=== PATIENT | male | born 1960 | race Two or more races ===

== ENCOUNTER 2025-11-11 14:29 | Outpatient (RCR) | payer MEDICARE, MEDICAID, SELFPAY ==
--- NOTE | 2025-10-22 11:32 | CTCCONSULT_ITS ---
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 ERCP performed showed a grossly deformed duodenum. was unable to cannulate CBD. EUS showed an ampullary mass, no biopsies taken at the time. Now transferred to [facility] for higher level of care. Patient states that he has had about 3 months of epigastric pain. worse with meals. His daughter noticed yellowing of his eyes for the last 2-3 weeks. He has had normal PO intake, denies decreased appetite. Has dark colored urine. pale stools, generalized itchiness. Denies fevers, weightless, nausea, vomiting, diarrhea. He denies any personal or family history of pancreatitis, GI cancers. He smokes about 10 cigarettes per day for last 45 years or so. Omsional alcohol use, denies illicit drug use. Denies past surgiwl history. Has never had a colonoscopy. 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 Tobacco Use:?Smokes -10 cigarettes/day -4 yrs - Smoked 1 PPD x35yrs ETOH?Use:?Drank?2-24oz?beers?x?20?yrs Drug?Note:?Denies Social History Note:?Lives with dtr and son-in-law MEDICATIONS: 1. None?[place]ra Meds? Medications Last Reconciled by Karo Ha RN on 10/22/2025 ALLERGIES: Penicillins REVIEW OF SYSTEMS: A complete 14-point review of systems was performed and is negative except as noted in interval history. PHYSICAL EXAMINATION: VITAL SIGNS: B/P?148/74, Height?65?inches, Oxygen?Saturation?95% Weight?176?lbs PAIN: 4 - Moderate pain ECOG Performance Status: 0 - Asymptomatic and fully active GENERAL APPEARANCE: Appears well, in no apparent distress, appropriately interactive. HEENT: Normocephalic, no temporal wasting, normal conjunctiva, no scleral icterus, normal hearing, lips without lesions, neck normal range of motion. CARDIOVASCULAR: Not assessed. PULMONARY: Normal respiratory effort, no respiratory distress or use of accessory muscles, speaking in full sentences, no tachypnea. EXTREMITIES: No pedal edema or cyanosis. SKIN: Normal skin appearance. NEUROLOGIC: Alert and oriented x4. PSHYCHIATRIC: Appropriate affect, mood normal, behavior normal, intact thought and speech. LABORATORY DATA: I have personally reviewed and interpreted each of the patient?s relevant lab tests, abnormal findings are below: Date ASSESSMENT/PLAN: Invasive adenocarcinoma of intestinal region Primary not known at this time Biopsy of the ampulla of Vater showed tumor which is invasive adenocarcinoma Patient need EGD and colonoscopy CT chest abdomen pelvis with IV contrast to fully stage patient Patient will need chemotherapy so will refer to interventional radiology to do port placement Will start on FOLFOX while awaiting for further imaging and being seen by a surgeon RETURN TO CLINIC: I reviewed the diagnosis, prognosis, and recommended treatment/procedure options with the patient (and/or their legal sales representative womens health), including the potential benefits, risks, side effects and alternative therapies. We also discussed the option of no treatment and the possibility of clinical trial participation, if applicable. All questions were addressed, and they demonstrated understanding. They provided informed consent to proceed with the proposed plan of care. BILLING AND COMPLIANCE: I reviewed external records from providers outside my specialty as summarized above. I spent a total of 50 minutes on this patient?s care on the day of their visit excluding time spent related to any billed procedures. This time includes time spent with the patient as well as time spent documenting in the medical record, reviewing patients records and tests, obtaining history, placing orders, communicating with other healthcare professionals, counseling the patient, family or caregiver, and/or care coordination for the diagnoses above. Electronically Signed by: Ney Ferguson MD T: 11:30 AM CC: PCP: Referring: Matt Carias This document was completed utilizing speech recognition software. Grammatical errors, random word insertions, pronoun errors, and incomplete sentences are an occasional consequence of this system due to software limitations, ambient noise, and hardware issues. Any formal questions or concerns about the content, text or information contained within the body of this dictation should be directly addressed to the provider for clarification.
== END 2025-11-19 23:59 | disposition home or self-care (01) ==
LOC: SCTC 14:29
PROVIDERS: PCP Family Medicine; Referring Provider Family Medicine; Visit Provider Radiology Therapeutic Radiology
DX: C17.0 Malignant neoplasm of duodenum (principal); C24.1 Malignant neoplasm of ampulla of Vater
CPT/HCPCS: 99213; G0463

== ENCOUNTER 2025-11-15 22:41 | Emergency (ER) | payer MEDICARE, MEDICAID, SELFPAY ==
[2025-11-15] VITALS (10 sets, daily range): BP systolic 91–109; BP diastolic 49–74; PULSE 88–136; RESP 13–24; TEMP 36.9–37.9; O2SAT 80–100; BMI 28.8
--- NOTE | 2025-11-15 22:46 | EDNOTE_ITS ---
ED GI Bleed RME/HPI General Chief complaint: Syncope / Near Syncope Stated complaint: SHOCK Time Seen by Provider: 11/15/25 22:45 Arrival date/time: 11/15/25 22:41 RME / HPI RME / HPI Narrative: DR. 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 Patient was found to be notably hypotensive with systolic BP in the 70's range and notably hypoxic with O2 saturation in the 80th percentile on usual 2L/min via NC. IV established in field and placed in high-flow nonrebreather mask with increase in oxygenation in high 90th percentile range. Patient does note melena of 2-3 days duration and epigastric pain, although denies hematemesis. PMH: Duodenal Mass, Metastatic Adenocarcinoma of the intestine PSH: Bilary stent placement s/p obstruction Allergies: Penicillins Social: Positive for Tobacco, No alcohol or illicit drug abuse Related Data Allergies Allergy/AdvReac Type Severity Reaction Status Date / Time Penicillins Allergy Verified 11/15/25 22:41 Review of Systems Review of Systems Systems Reviewed: All systems reviewed, normal except as documented Past Medical History Past Medical History CARDIAC: Positive Hypotension RESPIRATORY: Positive Chronic Obstructive Pulmonary Disease (COPD) and Asthma (COPD) GASTROINTESTINAL: Positive Gastrointestinal Bleed Social History SMOKING STATUS: Current some day smoker ED Exam Narrative Physical exam: GEN. APPEARANCE: The patient is alert awake oriented X-3 notably tachycardic, hypotensive, appears pale. Patient has good eye contact. Patient is cooperative. VITALS: All vitals were reviewed and the pulse ox is 100%, which is normal according to my interpretation HEENT: Normocephalic, atraumatic and nontender. Pupils are equal and reactive. Oral mucosa is moist. NECK: Supple, nontender, no meningismus, no JVD. There is no thyromegaly and no lymphadenopathy. CHEST: Nontender on palpation no deformity and no crepitus. CARDIOVASCULAR: Tachycardic, no murmur or gallop rub or extra beats. LUNGS: Clear to auscultation bilaterally with symmetrical chest rise. No laboring tachypnea or wheezing. No intercostal subcostal retraction. No rales and no rhonchi. ABDOMEN: Soft, mildly distended, diffusely tender with grimacing with palpation to upper quadrant/epigastric region, guarding, hemoccult positive stool. There are no abnormal masses palpated. No pulsatile masses or bruits. Active and normal bowel sounds. EXTREMITIES: Normal inspection and palpation. No edema. No cyanosis. Patient is able to move all 4 extremities well SKIN: Warm and dry, no rashes noted. MUSCULOSKELETAL: No lumbar or midline bony tenderness. There is no CVA tenderness. No paraspinal muscle spasm or tenderness. NEURO: Cranial nerves II through XII grossly intact. There are no focal neurologic deficits noted. GCS is 15 PSYCHIATRIC: Patient is in normal mood and affect, cooperative. LYMPHATICS: No major lymphadenopathy noted. Course Course Course Narrative: 0600: Care assumed by Dr. Dacosta (emergency physician). Past medical, surgical, social and family history reviewed. Vitals and home medications reviewed. Results and treatment plan discussed. They will assume the care of the patient at this time and will follow the patient, pending CXR, blood transfusion and possible transfer to tertiary facility. Quality Measures Current suspected stage: sepsis Possible source: GI tract/intra-abdominal Blood cultures ordered: yes Antibiotic ordered: Yes Pertinent labs: 11/15/25 11/16/25 22:45 02:50 Lactic Acid 4.9 H* mMol/L 0.7 mMol/L (0.4-2.0) (0.4-2.0) Procalcitonin 0.18 ng/ml (0.0-0.49) sepsis Orders Category Date Time Status CT Screening NOW Care 11/15/25 23:08 Active Rubbish Collection Supervisor NOW Care 11/16/25 00:01 Completed Rubbish Collection Supervisor STAT Care 11/15/25 22:56 Active Rubbish Collection Supervisor STAT Care 11/15/25 23:07 Completed Continuous Pulse Oximetry Care 11/16/25 00:01 Active Continuous Pulse Oximetry STAT Care 11/15/25 22:57 Completed EKG (ED ONLY) *Do not use* NOW Care 11/15/25 22:47 Completed Bone [Urinary Catheter] QS Care 11/15/25 22:50 Active Insert IV STAT Care 11/15/25 22:57 Completed NPO STAT Care 11/15/25 22:57 Active Obtain Written Consent For: NOW Care 11/16/25 00:01 Completed Transfuse,blood/blood products NOW Care 11/15/25 23:59 Active Urinary Catheter STAT Care 11/15/25 22:[address] abd pel w con SEPSIS MORAIMA Stat Exams 11/15/25 23:06 Completed EKG (ED Only) Stat Exams 11/15/25 22:47 Draft XR chest 1V portable Stat Exams 11/16/25 05:55 Completed Ammonia Stat Lab 11/15/25 23:54 Completed Amylase Stat Lab 11/15/25 22:45 Completed Antibody Identification Stat Lab 11/15/25 22:45 Completed Blood Culture (Lab) Stat Lab 11/15/25 22:40 Received CBC Stat Lab 11/15/25 22:45 Completed Comprehensive Metabolic Panel Stat Lab 11/15/25 22:45 Completed Lactate (Lactic Acid) Stat Lab 11/15/25 22:45 Completed Lactic Acid, 3 HR Stat Lab 11/16/25 02:50 Completed Lipase Stat Lab 11/15/25 22:45 Completed Magnesium Stat Lab 11/15/25 22:45 Completed Packed Cells [Red Blood Cells] Stat Lab 11/16/25 00:00 Completed Partial Thromboplastin Time Stat Lab 11/15/25 22:45 Completed Procalcitonin Stat Lab 11/15/25 22:45 Completed Prothrombin Time with INR Stat Lab 11/15/25 22:45 Completed Troponin I Stat Lab 11/15/25 22:45 Completed Type and Screen Stat Lab 11/15/25 22:45 Completed Urinalysis, C/S if Indicated Stat Lab 11/15/25 23:00 Completed Urinalysis, C/S if Indicated Stat Lab 11/15/25 23:07 Ordered Albuterol/Ipratr Rt Shiloh [Duoneb Rt Shiloh] Med 11/16/25 07:49 Discontinued 3 ml INH X1 ONE Pantoprazole Inj [Protonix Inj] Med 11/15/25 22:56 Discontinued 40 mg IVP X1 ONE Ringers Lactated 1000 ml [Lactated Ringers] 1,000 ml Med 11/15/25 23:06 Discontinued IV 999 mls/hr Sodium Chloride 0.9% 1000 ml [Ns] 1,000 ml Med 11/16/25 06:15 Active IV 250 mls/hr Sodium Chloride 0.9% 1000 ml [Ns] 1,000 ml Med 11/15/25 22:56 Discontinued IV 999 mls/hr fentaNYL INJ [Sublimaze Inj] Med 11/15/25 23:26 Discontinued 50 mcg IVP X1 ONE Oxygen Delivery NOW RT 11/15/25 23:07 Completed Oxygen Delivery STAT RT 11/15/25 22:57 Active Vital Signs Vital signs: Vital Signs Pulse Rate 132 H 11/15/25 22:45 Respiratory Rate 19 11/15/25 22:45 Pulse Oximetry (%) 100 11/15/25 22:45 PROCEDURES: Stool Hemoccult Procedural Steps Taken: stool placed in appropriate test area, developer placed on stool and control areas and controls appropriately positive and negative Hemoccult result: positive GI Bleed MDM Narrative MDM Narrative:: Scribe Attestation: Tish Merlos, am scribing for and in the presence of Dr. Kramer. Provider Notation: Although this document has been carefully reviewed, there may still be some phonetic and other typographical errors. These errors are purely grammatical due to imperfections in the software program and should not be construed in any way to compromise the substance of the patient's medical care during this visit. 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 Patient was found to be notably hypotensive with systolic BP in the 70's range and notably hypoxic with O2 saturation in the 80th percentile on usual 2L/min via NC. Please see PE findings. Laboratory markers, including CBC and serum chemistries, demonstrated a WBC of 10.4 and Hgb of 6.6 (significant drop from previous), thrombocytosis. Serum chemistries notable for lactic acid of 4.9, elevated LFT's, and normal ammonia. UA without evidence of infection. Patient ruled in for sepsis protocol, after cultures obtained, initiated dual ABX. BP improved gradually to 100 systolic range. CXR currently pending. Patient typed and cross packed RBC and will be transfused. CT abdomen/pelvis demonstrates biliary obstruction with noted biliary stent in place and large duodenal mass, likely metastatic extending to liver and pancreas. Additionally noted is evidence of cholecystitis. Final diagnoses include Emphysematous cholecystitis, Ascending cholangitis, and Septic shock. Patient will require transfer to tertiary center. Please see AM physician's note for final disposition. Patient data External records reviewed:: [facility] previous records (Reviewed prior ED records from 10/29/25. Patient was seen for Duodenal mass.) and EMS form Clinical information provided by:: patient and EMS Social determinants that could affect healthcare access:: none Patient has the following chronic illnesses:: Duodenal Mass, Metastatic Adenocarcinoma of the intestine, Hypotension, COPD, GI bleed, Asthma How is presenting disease/condition affected by chronic disease/condition?: exacerbated by Evaluation data The following diagnostics were reviewed and interpreted by me:: lab results, radiology exam(s) and EKG tracing(s) (EKG at 22:47 shows normal sinus tachycardia at 129, normal axis, no ectopy, no signs of acute ischemia, per my interpretation.) Lab and/or radiology exams considered but not ordered:: None Interpretation Summary: RADIOLOGY Abdomen/Pelvis CT: Findings: The lung bases are clear. The spleen, and adrenals are unremarkable. A few subcentimeter hypodensities in the liver, too small to be characterized. Complex left renal cystic lesion measuring 8.4 cm. No hydronephrosis. Fat stranding peripheral to the pancreatic tail. Ill-defined hypodensity of the pancreatic head associated with pancreatic duct dilation. Biliary stent in place associated with expected pneumobilia. Moderate intrahepatic biliary duct dilation. Gallbladder wall thickening. Gallstones. Air within the gallbladder. Distended stomach with air-fluid levels within. No evidence of bowel obstruction. The appendix is within normal limits. There is no mesenteric or retroperitoneal adenopathy. Bone catheter in place. The urinary bladder is not distended, limited evaluation. Air within the urinary bladder. There is no free fluid or free air. The osseous structures are unremarkable. Diverticulosis of the colon. Impression: 1. Acute cholecystitis. 2. Possible cholangitis. 3. Liver hypodensities, differential diagnosis includes focal cholangitis and metastases. Further evaluation is recommended. 4. Distended stomach with air-fluid levels within, consider gastric dysmotility disorder and gastric outlet obstruction. 5. Complex left renal cystic lesion, further evaluation for characterization is recommended, consider cystic renal cell carcinoma in the differential diagnosis. 6. Acute pancreatitis at the level of the pancreatic tail. 7. Hypodense area in the pancreatic head suspicious for pancreatic cancer. 8. Urinary bladder air, possibly postprocedural or possibly due to acute cystitis. Medications / Prescriptions Medications or Prescriptions considered but not ordered:: None Medication administrations:: Medication Administration History Sodium Chloride (Ns) 1,000 mls @ 250 mls/hr IV .Q4H SONIA Stop: 12/16/25 06:14 Last Admin: 11/16/25 11:47 Dose: 250 mls/hr Documented By: Infusion: 11/16/25 10:21 Dose: Infused Documented By: Admin: 11/16/25 06:21 Dose: 250 mls/hr Documented By: LOREE Discontinued Medications Albuterol/Ipratropium (Albuterol/Ipratropium (Duoneb) Rt Shiloh 3 Ml Nebu) 3 ml INH X1 ONE Stop: 11/16/25 07:50 Last Admin: 11/16/25 08:09 Dose: 3 ml Documented By: TRACY Fentanyl Citrate (Fentanyl Cit Inj 50 Mcg/Ml Amp 2ml) 50 mcg IVP X1 ONE Stop: 11/15/25 23:27 Last Admin: 11/15/25 23:33 Dose: 50 mcg Documented By: LOREE Sodium Chloride (Ns) 1,000 mls @ 999 mls/hr IV .Q1H1M ONE Stop: 11/15/25 23:56 Last Infusion: 11/16/25 00:19 Dose: Infused Documented By: Admin: 11/15/25 23:04 Dose: 999 mls/hr Documented By: LOREE Lactated Ringer's (Lactated Ringers) 1,000 mls @ 999 mls/hr IV .Q1H1M ONE Stop: 11/16/25 00:06 Last Infusion: 11/16/25 00:19 Dose: Infused Documented By: Admin: 11/15/25 23:17 Dose: 999 mls/hr Documented By: LOREE Pantoprazole Sodium (Pantoprazole Inj 40 Mg Vial) 40 mg IVP X1 ONE Stop: 11/15/25 22:57 Last Admin: 11/15/25 23:05 Dose: 40 mg Documented By: LOREE See above if any. Consultations Consultation(s) initiated? (list below): No Diagnosis GI bleed differential diagnosis: Lower gastrointestinal hemorrhage, hematochezia, melena and anal fissure Most likely diagnosis given after review of the tests above:: Emphysematous cholecystitis, Ascending cholangitis, Septic shock Admission Indicated Admission indicated?: indicated Explain why admission is indicated or not indicated:: pending blood transfusion and transfer to tertiary facility. Admission Request Was there a request for admission?: No Disposition Plan Disposition Plan: other (specify) (Signed out to Dr. Dacosta at 6 AM.) Critical Care Time Critical Care Time Critical Care Time: Yes Total Critical Care Time (min.): 45 Attestation: The high probability of sudden, clinically significant deterioration in the patient?s condition required the highest level of my preparedness to intervene urgently. The services I provided to this patient were to treat and/or prevent clinically significant deterioration. Services included the following: chart data review, reviewing nursing notes and/or old charts, documentation time, media consultant outside sales collaboration regarding findings and treatment options, medication orders and management, direct patient care, vital sign assessments and ordering, interpreting and reviewing diagnostic studies and lab tests. Aggregate critical care time includes only time during which I was engaged in work directly related to the patient?s care, as described above, whether at bedside or elsewhere in the Emergency Department. It did not include time spent performing other reported procedures or the services of residents, students, nurses or physician assistants. Discharge Plan Plan Patient Disposition: [facility] Pt Being Transferred to: [facility] Service Needed for Transfer: Gastroenterology Prescriptions/Referrals Referrals: Matt Carias MD [Primary Care Provider] - In 1 week Problem List Clinical Impression: Emphysematous cholecystitis, Ascending cholangitis, Septic shock Patient/Caregiver Discharge Instructions Print Language: Cymro Stand Alone Forms: [facility] Award Info., Patient Portal Info Letter
--- NOTE | 2025-11-15 22:47 | EKG_ITS ---
[facility] Test Date: 2025-11-15 Pat Name: SUPA JIN Department: Room: - Gender: Male [employer]ing [employer] Operator: : 1960 Requested By: Sid Moraes Order Number: [id number] Reading MD: Sid Moraes Measurements Intervals [place] Rate: 129 P: 83 MO: 152 QRS: 64 QRSD: 87 T: 81 QT: 310 QTc: 455 Interpretive Statements SINUS TACHYCARDIA POSSIBLE RIGHT VENTRICULAR CONDUCTION DELAY [RSR (QR) IN V1/V2] ABNORMAL RHYTHM ECG Compared to ECG 10/28/2025 05:53:57 ST (T wave) deviation no longer present /store/S0/[id number]/ecg/[id number].pdf
[2025-11-15] MEDS: SODIUM CHLORIDE 0.9% 1000 ML 1,000 ML 999 ML IV (23:04)
--- NOTE | 2025-11-15 23:06 | XR_ITS ---
: Examination: CT abdomen with intravenous contrast CT pelvis with intravenous contrast 2-D coronal reconstructions 2-D sagittal reconstructions Date and time of exam: November 16, 2025, 0046 hours INDICATIONS: Sepsis alert, abdominal pain, onset unknown source of infection today. CTDI: vol (mGy) 29 DLP: (mGycm) 1219 Technique: Multiple axial sections of the abdomen and pelvis have been obtained. 64 slice high-resolution scanner used. 3 mm axial sections have been obtained, post intravenous injection 60 cc [id number] 2D sagittal coronal reconstructions Low dose protocols, adjustment of the MA KV according to patient size FINDINGS: Pneumobilia with biliary tract dilatation intra and extrahepatic Fluid distended stomach Subtle indeterminate low-density liver lesions Gallstones, suspicious for cholecystitis Biliary stent with thickening of the common bile duct Pancreatic head is enlarged, axial image 74, 4 cm mild edema 1 mm right renal calculus Complex left cystic mass 8 cm with calcification in the wall of the cyst Normal appendix No bowel obstruction Colonic diverticulosis Air in the urinary bladder Diffuse mild to moderate lumbar degenerative disc disease IMPRESSION: Pneumobilia, subtle low-density liver lesions, consider MRI abdomen liver follow-up pre and postcontrast Cholelithiasis, suspicious for cholecystitis Biliary stent with wall thickening involving the common bile duct, consider cholangitis Enlarged pancreatic head with possible edema pancreatic head, differential would include pancreatic carcinoma Complex left renal cystic mass, recommend renal sonography 1 mm right renal calculus No bowel obstruction Cystitis pattern
[2025-11-15] MEDS: RINGERS LACTATED 1000 ML 1,000 ML 999 ML IV (23:17)
[2025-11-15 23:27] LABS: Collection Type, Urine Catheter
[2025-11-15] MEDS: fentaNYL CIT INJ 50 mCg/ML AMP 2ML IVP (23:33)
[2025-11-15 23:35] LABS: Bilirubin,Urine Negative (Negative); Blood,Urine Negative (Negative); Clarity,Urine Clear (Clear/Hazy); Color,Urine Yellow (Lt Yel-Yel); Culture Indicated,Urine Not Indicated; Glucose, Urine Negative (Negative); Ketones,Urine Trace (Negative); Leukocyte Esterase,Urine Negative (Negative); Nitrite,Urine Negative (Negative); PH,Urine 7.0 (5.0-7.0); Protein,Urine 1+ (Neg - Trace); RBC,Urine 8 /hpf (0-3); Specific Gravity,Urine 1.029 (1.001-1.035); Squamous Epithelial Cell,Urine < 1 /hpf (0-5); Urobilinogen,Urine 3.0 mg/dL (0.0-1.0); WBC,Urine 1 /hpf (0-5)
[2025-11-15 23:45] LABS: Lactate (Lactic Acid) 4.9 mMol/L (0.4-2.0)
[2025-11-15 23:50] LABS: Basophils # (Auto) 0.0 Thou/mm3 (0.0-0.2); Basophils % (Auto) 0 % (0-2.5); Eosinophils # (Auto) 0.1 Thou/mm3 (0.0-0.5); Eosinophils % (Auto) 1 % (0-10); Hematocrit 21.3 % (41.0-53.0); Immature Granulocytes Auto 0.06 Thou/mm3 (0.00-0.00); Lymphocytes # (Auto) 2.1 Thou/mm3 (1.0-4.8); Lymphocytes % (Auto) 20 % (10-50); Mean Corpuscular HGB Conc 31.0 g/dl (31.0-37.0); Mean Corpuscular Hemoglobin 27.3 pg (25.0-35.0); Mean Corpuscular Volume 88 fL (80-100); Monocytes # (Auto) 0.8 Thou/mm3 (0.0-0.8); Monocytes % (Auto) 7 % (0-12); Neutrophils # (Auto) 7.3 Thou/mm3 (1.8-7.7); Neutrophils % (Auto) 71 % (37-80); Nucleated Red Blood Cell # 0.02 Thou/mm3 (0.00-0.00); Nucleated Red Blood Cell % 0 /100 WBC (0); Platelet Count 533 Thou/mm3 (140-440); RDW Standard Deviation 50.4 fL (35.1-43.9); Red Blood Count 2.42 Miln/mm3 (4.50-5.90); White Blood Count 10.4 Thou/mm3 (3.8-10.6)
[2025-11-15 23:52] LABS: Hemoglobin 6.6 g/dL (13.5-16.0)
[2025-11-15 23:55] LABS: INR 1.0 (0.9-1.3); Partial Thromboplastin Time 23.9 Seconds (22.0-36.0); Prothrombin Time 11.0 Seconds (9.0-12.2)
[2025-11-16] VITALS (43 sets, daily range): BP systolic 96–128; BP diastolic 50–62; PULSE 63–94; RESP 16–32; TEMP 36.4–37.2; O2SAT 92–100
[2025-11-16 00:31] LABS: Ammonia 15 uMol/L (11-32)
[2025-11-16 01:27] LABS: Alanine Aminotransferase 297 U/L (10-49); Albumin, Serum 2.9 gm/dL (3.4-4.8); Albumin/Globulin Ratio 1.5 (1.2-2.2); Alkaline Phosphatase 990 U/L (46-116); Amylase 30 U/L (30-118); Anion Gap 8 (7-16); Aspartate Amino Transferase 122 U/L (0-34); BUN/Creatinine Ratio 22 Ratio (12-20); Bilirubin,Total 0.7 mg/dL (0.3-1.2); Blood Urea Nitrogen 13 mg/dL (9-23); Calcium 8.1 mg/dL (8.3-10.6); Calcium (Corrected) 9.0 mg/dL (8.5-10.1); Carbon Dioxide 32.8 mMol/L (20.0-31.0); Chloride 102 mMol/L (98-107); Creatinine (Component) 0.6 mg/dL (0.6-1.3); Estimated Creatinine Clearance 124.5 mL/min (>60); Globulin 2.0 gm/dL (2.3-3.5); Glucose 130 mg/dL (74-106); Lipase 37 U/L (12-53); Magnesium 1.8 mg/dL (1.6-2.6); Osmolality,Calculated 287 (275-295); Potassium 3.5 mMol/L (3.4-5.1); Procalcitonin 0.18 ng/ml (0.0-0.49); Sodium 143 mMol/L (136-145); Total Protein 4.9 gm/dL (5.7-8.2); Troponin I < 0.020 ng/mL (0.0-0.045); eGFR > 60 See Note
--- NOTE | 2025-11-16 02:00 | PC.NURSE ---
per blood bank, blood is getting sent from [facility]. they will call this rn back when they have an eta
[2025-11-16 02:41] LABS: Reflex Lactate? Y
[2025-11-16 02:54] LABS: Lactic Acid, 3 HR 0.7 mMol/L (0.4-2.0)
--- NOTE | 2025-11-16 02:55 | PRELIM_ITS ---
CT scan of the abdomen and pelvis with intravenous contrast (axial sections with sagittal and coronal reformats) November 16, 2025 0046 hours Clinical History: Rule out intraabdominal abscess. Comparison: None available at the time of this report. Findings: The lung bases are clear. The spleen, and adrenals are unremarkable. A few subcentimeter hypodensities in the liver, too small to be characterized. Complex left renal cystic lesion measuring 8.4 cm. No hydronephrosis. Fat stranding peripheral to the pancreatic tail. Ill-defined hypodensity of the pancreatic head associated with pancreatic duct dilation. Biliary stent in place associated with expected pneumobilia. Moderate intrahepatic biliary duct dilation. Gallbladder wall thickening. Gallstones. Air within the gallbladder. Distended stomach with air-fluid levels within. No evidence of bowel obstruction. The appendix is within normal limits. There is no mesenteric or retroperitoneal adenopathy. Bone catheter in place. The urinary bladder is not distended, limited evaluation. Air within the urinary bladder. There is no free fluid or free air. The osseous structures are unremarkable. Diverticulosis of the colon. Impression: 1. Acute cholecystitis. 2. Possible cholangitis. 3. Liver hypodensities, differential diagnosis includes focal cholangitis and metastases. Further evaluation is recommended. 4. Distended stomach with air-fluid levels within, consider gastric dysmotility disorder and gastric outlet obstruction. 5. Complex left renal cystic lesion, further evaluation for characterization is recommended, consider cystic renal cell carcinoma in the differential diagnosis. 6. Acute pancreatitis at the level of the pancreatic tail. 7. Hypodense area in the pancreatic head suspicious for pancreatic cancer. 8. Urinary bladder air, possibly postprocedural or possibly due to acute cystitis. Report Electronically Signed By: Víctor Fonseca 11/16/2025 2:54:55 AM [EST]
--- NOTE | 2025-11-16 05:55 | XR_ITS ---
EXAMINATION: AP chest single view TECHNIQUE: AP portable upright chest single view Date and time: November 16, 2025, 0604 hours, comparison October 28, 2025 INDICATIONS: Shortness of breath today. FINDINGS: Mild prominence left ventricle Mild vascular congestion. No lobar pneumonia or pulmonary edema. Moderate osteopenia IMPRESSION: Moderate vascular congestion
[2025-11-16] MEDS: SODIUM CHLORIDE 0.9% 1000 ML 1,000 ML 250 ML IV ×2 (06:21→11:47)
[2025-11-16] MEDS: ALBUTEROL/IPRATROPIUM (Duoneb) RT SOL 3 ML NEBU INH (08:09)
--- NOTE | 2025-11-16 08:17 | PC.NURSE ---
THIS [employer]ARM FACILITY MANAGER CONTACTED AND SPOKE WITH BAYRON AT [facility]SF[facility] TO INITIATE TRANSFER FOR THIS PATIENT @ [phone].
--- NOTE | 2025-11-16 09:56 | PC.NURSE ---
0900 RN SPOKE WITH MARIUSZ AT [facility] [phone], EXPRESSING NEED FOR INSURANCE AUTH FOR PATIENT, RN ATTEMPTED TO CALL PATIENT INSURANCE MEDICARE MANAGED CARE ([facility]) [employer] @ [phone], CLINICAL SERVICES CLOSED TODAY, OPEN MON-MONDAY 8- ONLY.
--- NOTE | 2025-11-16 10:00 | PC.NURSE ---
MARIUSZ FROM [facility] RETURN CALL TO INFORM NO AUTH WAS REQUIRED FOR PATIENT AT THIS TIME.
--- NOTE | 2025-11-16 10:44 | PD.EDADDENDU ---
Emergency Room Addendum Addendum Narrative: 0600: Care assumed from Dr. Lozoya, the previous shift emergency physician. Past medical, surgical, social and family history reviewed. Vitals and home medications reviewed. I will assume the care of the patient at this time. Please refer to the emergency department record for history and examination from initial visit.? Patient with known metastatic duodenal malignancy presenting with near syncope, hypotension, hypoxia, melena, and acute anemia. Labs notable for hemoglobin 6.6, lactic acid 4.9, thrombocytosis, and elevated LFTs. CT abdomen pelvis shows large duodenal mass with biliary obstruction, emphysematous cholecystitis, and ascending cholangitis. Sepsis protocol initiated, blood cultures obtained, broad spectrum antibiotics started, and packed RBC transfusion ordered. Blood pressure improved without pressor requirement. 9:40 AM I called [facility] transfer center at [phone]. I spoke with the transfer center personnel. They said that they have paged out the hospitalist but they have not called back. That page amongst the happened hours ago. I asked in the review page and I also gave them an update on the diagnoses of the patient. Hopefully will get a callback soon. Currently the patient's heart rate is 88, blood pressure 120/61. His temp is 98.4. He saturating 100% on 2 L. So far he has not required pressors. Differential diagnoses include septic shock, GI bleed secondary to malignant duodenal mass, and biliary sepsis. 1046: [facility] accepted the patient for transfer. Critical Care Time Critical Care Time Critical Care Time: Yes Total Critical Care Time (min.): 45 Attestation: The high probability of sudden, clinically significant deterioration in the patient?s condition required the highest level of my preparedness to intervene urgently. The services I provided to this patient were to treat and/or prevent clinically significant deterioration. Services included the following: chart data review, reviewing nursing notes and/or old charts, documentation time, informatics consultant collaboration regarding findings and treatment options, medication orders and management, direct patient care, vital sign assessments and ordering, interpreting and reviewing diagnostic studies and lab tests. Aggregate critical care time includes only time during which I was engaged in work directly related to the patient?s care, as described above, whether at bedside or elsewhere in the Emergency Department. It did not include time spent performing other reported procedures or the services of residents, students, nurses or physician assistants. Results Objective Laboratory: Laboratory Last Values WBC 10.4 Thou/mm3 (3.8-10.6) 11/15/25 22:45 RBC 2.42 Miln/mm3 (4.50-5.90) L 11/15/25 22:45 Hgb 6.6 g/dL (13.5-16.0) L* 11/15/25 22:45 Hct 21.3 % (41.0-53.0) L* 11/15/25 22:45 MCV 88 fL (80-100) 11/15/25 22:45 MCH 27.3 pg (25.0-35.0) 11/15/25 22:45 MCHC 31.0 g/dl (31.0-37.0) 11/15/25 22:45 RDW Std Deviation 50.4 fL (35.1-43.9) H 11/15/25 22:45 Plt Count 533 Thou/mm3 (140-440) H D 11/15/25 22:45 Neut % (Auto) 71 % (37-80) 11/15/25 22:45 Lymph % (Auto) 20 % (10-50) 11/15/25 22:45 [place] % (Auto) 7 % (0-12) 11/15/25 22:45 Eos % (Auto) 1 % (0-10) 11/15/25 22:45 Baso % (Auto) 0 % (0-2.5) 11/15/25 22:45 Neut # (Auto) 7.3 Thou/mm3 (1.8-7.7) 11/15/25 22:45 Lymph # (Auto) 2.1 Thou/mm3 (1.0-4.8) 11/15/25 22:45 [place] # (Auto) 0.8 Thou/mm3 (0.0-0.8) 11/15/25 22:45 Eos # (Auto) 0.1 Thou/mm3 (0.0-0.5) 11/15/25 22:45 Baso # (Auto) 0.0 Thou/mm3 (0.0-0.2) 11/15/25 22:45 Immature Gran # (Auto) 0.06 Thou/mm3 (0.00-0.00) H 11/15/25 22:45 Absolute Nucleated RBC 0.02 Thou/mm3 (0.00-0.00) H 11/15/25 22:45 Immature Gran % 1 % (0-0) H 11/15/25 22:45 Nucleated RBC % 0 /100 WBC (0) 11/15/25 22:45 PT 11.0 Seconds (9.0-12.2) 11/15/25 22:45 INR 1.0 (0.9-1.3) 11/15/25 22:45 APTT 23.9 Seconds (22.0-36.0) 11/15/25 22:45 Sodium 143 mMol/L (136-145) 11/15/25 22:45 Potassium 3.5 mMol/L (3.4-5.1) 11/15/25 22:45 Chloride 102 mMol/L (98-107) 11/15/25 22:45 Carbon Dioxide 32.8 mMol/L (20.0-31.0) H 11/15/25 22:45 Anion Gap 8 (7-16) 11/15/25 22:45 BUN 13 mg/dL (9-23) 11/15/25 22:45 Creatinine 0.6 mg/dL (0.6-1.3) 11/15/25 22:45 Estim Creat Clear Calc 124.5 mL/min (>60) 11/15/25 22:45 eGFR > 60 See Note (60-) 11/15/25 22:45 BUN/Creatinine Ratio 22 Ratio (12-20) H 11/15/25 22:45 Glucose 130 mg/dL (74-106) H 11/15/25 22:45 Calculated Osmolality 287 (275-295) 11/15/25 22:45 Lactic Acid 0.7 mMol/L (0.4-2.0) 11/16/25 02:50 Calcium 8.1 mg/dL (8.3-10.6) L 11/15/25 22:45 Corrected Calcium 9.0 mg/dL (8.5-10.1) 11/15/25 22:45 Magnesium 1.8 mg/dL (1.6-2.6) 11/15/25 22:45 Total Bilirubin 0.7 mg/dL (0.3-1.2) 11/15/25 22:45 AST 122 U/L (0-34) H 11/15/25 22:45 ALT 297 U/L (10-49) H 11/15/25 22:45 Alkaline Phosphatase 990 U/L (46-116) H 11/15/25 22:45 Ammonia 15 uMol/L (11-32) 11/15/25 23:54 Troponin I < 0.020 ng/mL (0.0-0.045) 11/15/25 22:45 Total Protein 4.9 gm/dL (5.7-8.2) L 11/15/25 22:45 Albumin 2.9 gm/dL (3.4-4.8) L 11/15/25 22:45 Globulin 2.0 gm/dL (2.3-3.5) L 11/15/25 22:45 Albumin/Globulin Ratio 1.5 (1.2-2.2) 11/15/25 22:45 Amylase 30 U/L (30-118) 11/15/25 22:45 Lipase 37 U/L (12-53) 11/15/25 22:45 Procalcitonin 0.18 ng/ml (0.0-0.49) 11/15/25 22:45 Ur Collection Type Catheter 11/15/25 23:00 Urine Color Yellow (Lt Yel-Yel) 11/15/25 23:00 Urine Clarity Clear (Clear/Hazy) 11/15/25 23:00 Urine pH 7.0 (5.0-7.0) 11/15/25 23:00 Ur Specific [place] 1.029 (1.001-1.035) 11/15/25 23:00 Urine Protein 1+ (Neg - Trace) A 11/15/25 23:00 Urine Glucose (UA) Negative (Negative) 11/15/25 23:00 Urine Ketones Trace (Negative) 11/15/25 23:00 Urine Blood Negative (Negative) 11/15/25 23:00 Urine Nitrite Negative (Negative) 11/15/25 23:00 Urine Bilirubin Negative (Negative) 11/15/25 23:00 Urine Urobilinogen (Auto) 3.0 mg/dL (0.0-1.0) 11/15/25 23:00 Ur Leukocyte Esterase Negative (Negative) 11/15/25 23:00 Urine RBC 8 /hpf (0-3) H 11/15/25 23:00 Urine WBC 1 /hpf (0-5) 11/15/25 23:00 Ur Squamous Epith Cells < 1 /hpf (0-5) 11/15/25 23:00 Urine Bacteria None (None) 11/15/25 23:00 Ur Culture Indicated? Not Indicated 11/15/25 23:00 Blood Type O Negative 11/15/25 22:45 Antibody Screen POSITIVE 11/15/25:45 Antibody Identification Anti-Jkb 11/15/25 22:45 Crossmatch See Detail 11/15/25 22:45 Blood Bank Wristband ID Yes 11/15/25 22:45 Imaging: Procedure(s): XR chest 1V portable Accession Number(s): [id number] cc: Matt Carias MD; Sid Lozoya DO; Saman Pérez MD~ EXAMINATION: AP chest single view TECHNIQUE: AP portable upright chest single view Date and time: November 16, 2025, 0604 hours, comparison October 28, 2025 INDICATIONS: Shortness of breath today. FINDINGS: Mild prominence left ventricle Mild vascular congestion. No lobar pneumonia or pulmonary edema. Moderate osteopenia IMPRESSION: Moderate vascular congestion Dictated By: Saman Pérez MD Procedure(s): CT abd pel w con SEPSIS MORAIMA Accession Number(s): [id number] cc: Matt Carias MD; Sid Lozoya DO; Saman Pérez MD~ : Examination: CT abdomen with intravenous contrast CT pelvis with intravenous contrast 2-D coronal reconstructions 2-D sagittal reconstructions Date and time of exam: November 16, 2025, 0046 hours INDICATIONS: Sepsis alert, abdominal pain, onset unknown source of infection today. CTDI: vol (mGy) 29 DLP: (mGycm) 1219 Technique: Multiple axial sections of the abdomen and pelvis have been obtained. 64 slice high-resolution scanner used. 3 mm axial sections have been obtained, post intravenous injection 60 cc [id number] 2D sagittal coronal reconstructions Low dose protocols, adjustment of the MA KV according to patient size FINDINGS: Pneumobilia with biliary tract dilatation intra and extrahepatic Fluid distended stomach Subtle indeterminate low-density liver lesions Gallstones, suspicious for cholecystitis Biliary stent with thickening of the common bile duct Pancreatic head is enlarged, axial image 74, 4 cm mild edema 1 mm right renal calculus Complex left cystic mass 8 cm with calcification in the wall of the cyst Normal appendix No bowel obstruction Colonic diverticulosis Air in the urinary bladder Diffuse mild to moderate lumbar degenerative disc disease IMPRESSION: Pneumobilia, subtle low-density liver lesions, consider MRI abdomen liver follow-up pre and postcontrast Cholelithiasis, suspicious for cholecystitis Biliary stent with wall thickening involving the common bile duct, consider cholangitis Enlarged pancreatic head with possible edema pancreatic head, differential would include pancreatic carcinoma Complex left renal cystic mass, recommend renal sonography 1 mm right renal calculus No bowel obstruction Cystitis pattern Dictated By: Saman Pérez MD
--- NOTE | 2025-11-16 10:56 | PC.NURSE ---
[address] B[address]RON [address] [facility], ACCEPTED TO [facility] [address] ED TO ED TO DR ZEE, REPORT #[phone].
[2025-11-16] MEDS: HYDROmorphone INJ 2 MG/ML VIAL 0.5 MG IVP ×2 (12:06→13:35)
--- NOTE | 2025-11-16 13:25 | PC.NURSE ---
REPORT CALLED TO ANGELES IN THE ER. ALL QUESTIONS ANSWERED.
== END 2025-11-16 13:43 | disposition short-term general hospital (02) ==
PROVIDERS: Emergency Medicine; Emergency Provider Emergency Medicine; PCP Family Medicine
DX: A41.9 Sepsis, unspecified organism (principal); R65.21 Severe sepsis with septic shock; K83.09 Other cholangitis; K80.00 Calculus of gallbladder with acute cholecystitis without obstruction; R09.89 Other specified symptoms and signs involving the circulatory and respiratory systems; K76.9 Liver disease, unspecified; C25.0 Malignant neoplasm of head of pancreas; N28.1 Cyst of kidney, acquired; N20.0 Calculus of kidney; R00.0 Tachycardia, unspecified; K85.90 Acute pancreatitis without necrosis or infection, unspecified; Z75.1 Person awaiting admission to adequate facility elsewhere
CPT/HCPCS: 36415; 36430; 51702; 71045; 74177; 80053; 81001; 82140; 82150; 83605; 83690; 83735; 84145; 84484; 85025; 85610; 85730; 86850; 86870; 86900; 86901; 86902; 86921; 86922; 87040; 93005; 94640; 96361; 96374; 96375; 96376; 99291; 99292; A4314; A4649; A9270; J1171; J2470; J3010; J7030; J7120; P9016; Q9967